=== PATIENT | female | born 1955 ===

== ENCOUNTER 2018-02-01 11:50 | Emergency (ER) | payer MEDICAID ==
[2018-02-01 12:18] VITALS: TEMP 98.3; O2SAT 98
--- NOTE | 2018-02-01 13:17 | C.PDOC ---
History Of Present Illness 62 year old female presents to ED for evaluation of bilateral eye redness that has gradually developed over the past month. Per daughter, patient was sent by potato chip maker after she was given ciprofloxacin and prednisone ophthalmic drops without improvement and after re-eval received cromolyn opht drops that was using for past week without improvement. As per pt, " feel constant discomfort in my eye, light hurts" Otherwise, pt denies prior illness, fever, chills, headache, dizziness, vertigo, double vision, floaters, denies pain with eye movement, FB sensation, CP, SOB, dyspnea, palpitation, abd. pain, N/V, denies any other active complaints. Ambulate to Ed for evaluation, not in any apparent distress. Time Seen by Provider: 02/01/18 12:32 Chief Complaint (Nursing): Eye Problem History Per: Family (daughter) History/Exam Limitations: no limitations Onset/Duration Of Symptoms: Days Current Symptoms Are (Timing): Still Present Past Medical History Reviewed: Historical Data, Nursing Documentation, Vital Signs Vital Signs: Last Vital Signs Temp 98.3 F 02/01/18 11:56 Pulse 81 02/01/18 13:27 Resp 16 02/01/18 13:27 BP 134/86 02/01/18 13:27 Pulse Ox 98 02/02/18 07:59 - Medical History PMH: Gastritis, HTN Surgical History: Cholecystectomy Family History: States: No Known Family Hx - Social History Hx Alcohol Use: No Hx Substance Use: No Review Of Systems Except As Marked, All Systems Reviewed And Found Negative. Constitutional: Negative for: Fever, Chills Eyes: Positive for: Redness (bilateral). Negative for: Pain (with eye movement) , Vision Change (double vision) Neurological: Negative for: Headache, Dizziness Physical Exam - Physical Exam Appears: Well, No Acute Distress Skin: Normal Color, Warm, Dry Eye(s): bilateral: PERRL, EOMI (no pain or limitation on extraocular movemnet B/ L), Other (Diffuse conjunctival erythema, mild chemosis noted left eye at 6 o' clock. NO periorbital edema or eyrthema.) Ear(s): Bilateral: Normal Nose: No Flaring, No Discharge Oral Mucosa: Moist, No Drooling Tongue: Normal Appearing Lips: Normal Appearing Throat: No Erythema, No Drooling Neck: Trachea Midline, No Midline Cervical Tenderness, No Paracervical Tenderness, No Step Off Deformity, Supple Cardiovascular: Rhythm Regular, No Murmur, No JVD Respiratory: No Decreased Breath Sounds, No Accessory Muscle Use, No Stridor, No Wheezing Extremity: Normal ROM, No Tenderness, No Deformity, No Swelling Neurological/Psych: Oriented x3, Normal Speech ED Course And Treatment O2 Sat by Pulse Oximetry: 98 (RA) Pulse Ox Interpretation: Normal Progress Note: Case discussed with opt-on-call . As per consult, likely viral conjunctivitis since patient failed tx of abx/steriod opht drops and antihistamine drops. recommend to cont abx/steroid oph qtt with outpt F/U in 2 days . On re-eval, pt is afebrile, hemodynamicaly stable. NOn-toxic. B/L eyes exam: diffuse conjunctival erythema, mild chemosis noted left eye. No pain or limitation on extraocular movemnet, no periorbital edema or erythema. VA R20/ 70, L20/70, B/L 20/50 w/correction. Neck: SUpple, (-) meningeal siugn. Lungs CTA B/L, BS equal B/L. ABd: benign. Neuorlogicaly intact. results review and discussed with pt. Advised, ref. to F/u with opht in 2 days for re-eavl. Pt understand and agrees with discharge. Disposition Counseled Patient/Family Regarding: Diagnosis, Need For Followup, Rx Given - Disposition Referrals: Juice Garcia MD [Staff Provider] - Disposition: HOME/ ROUTINE Disposition Time: 13:18 Condition: STABLE Additional Instructions: Follow up with Ophthalmology in 2 days for re-evaluation. return to ED if any new changes. Prescriptions: Dexamethasone/Tobramycin [Tobradex 0.1%-0.3% 2.5 Ml] 1 drop OP Q6 #1 bottle Instructions: Conjunctivitis ([place]) Forms: [facility] (Panamanian) Print Language: CITIZEN OF [place] - Clinical Impression Clinical Impression: Viral conjunctivitis - PA / [place] / Resident Statement MD/DO has reviewed & agrees with the documentation as recorded. - Scribe Statement The provider has reviewed the documentation as recorded by the Mirandaibe Chap[place] All medical record entries made by the Joseph were at my direction and personally dictated by me. I have reviewed the chart and agree that the record accurately reflects my personal performance of the history, physical exam, medical decision making, and the department course for this patient. I have also personally directed, reviewed, and agree with the discharge instructions and disposition.
[2018-02-01 13:27] VITALS: BP 134/86; PULSE 81; RESP 16
== END 2018-02-01 13:27 | disposition home or self-care (01) ==
LOC: C.ER 11:50
DX: B30.9 Viral conjunctivitis, unspecified (principal); I10 Essential (primary) hypertension